=== PATIENT | female | born 1970 | race Caucasian/White ===

== ENCOUNTER → 2017-04-19 | Outpatient (CLI) | payer OTHER ==
[~2017-04-19] MED LIST: BUTA-324 PO; CETI-176 PO; CETI1TAB80 PO; CLAR-1 PO; HYDR2TAB4 PO; IBU200 PO; METR-160 PO; MULT-19 PO; ONDA4TAB PO; PANT40TA65 PO; PER PO; PROM-110 PO
--- NOTE | 2017-04-19 14:00 | RADIOLOGY IMAGING REPORT ---
FACILITY: [facility] PATIENT NAME: GORDY BOND : [id number] MR: [id number] V: [id number] EXAM DATE: [id number] ORDERING PHYSICIAN: LANE WADDELL TECHNOLOGIST: Linnette Lyon PROCEDURE:BILATERAL DIGITAL SCREENING MAMMOGRAM WITH CAD ASSISTED INTERPRETATION & 3D TOMOSYNTHESIS COMPARISON:Mammograms 03/07/2016 & 02/12/2015 INDICATIONS:SCREENING TECHNIQUE: This examination was reviewed with the aid of CAD Breast tissue demonstrates scattered fibroglandular tissue densities. FINDINGS: There is no suspicious mass, calcification or architectural distortion. DIAGNOSTIC CATEGORY 1--NEGATIVE. RECOMMENDATIONS: ROUTINE YEARLY SCREENING MAMMOGRAM AND CLINICAL EVALUATION. IMPRESSION: BIRADS 1: Negative. No mammographic evidence for malignancy. Dictated by: Tigre King M.D. on 04/19/2017 at 12:24 Transcribed by: CHACHO on 04/19/2017 at 13:32 Approved by: Tigre King M.D. on 04/19/2017 at 13:59 [facility]
== END ==
LOC: MAMO 01:28
PROVIDERS: ATTEND Obstetrics & Gynecology
DX: Z12.31 Encounter for screening mammogram for malignant neoplasm of breast (principal)
CPT/HCPCS: 77063; 77067

== ENCOUNTER → 2018-05-20 | Outpatient (CLI) | payer OTHER ==
[~2018-05-20] MED LIST changes: -METR-160 PO; +METR500T15 PO
--- NOTE | 2018-05-20 15:39 | RADIOLOGY IMAGING REPORT ---
FACILITY: [facility] PATIENT NAME: Dasia Jiang : 1970 MR: [id number] V: [id number] EXAM DATE: ORDERING PHYSICIAN: HERMELINDA SAUCEDO TECHNOLOGIST: Location: [facility] [place] Patient: Dasia Jiang : 1970 Visit/Account:[id number] Date of Sevice: 05/20/2018 DEXA Scan Clinical history: Post menopausal. Comparison: None available. LUMBAR SPINE: The bone mineral density (BMD) measured from L1-L4 correlates with a Z-score 1.2 and a T-score of 1.1 which is Normal as defined by the World Health Organization. The corresponding risk of fracture in the lumbar spine is Not increased compared with a young adult reference population. HIP: Bone mineral density (BMD) measured in the Left total hip region correlates with a Z-score 0.8 and a T-score of 0.6 which is Normal as defined by the World Health Organization. The corresponding risk o f fracture in the hip is Not increased compared with a young adult reference population. T score le ft femoral neck 0.2 Bone mineral density (BMD) measured in the Femoral Neck region measures 1.063 g/cm2. Impression: 1. Lumbar spine: Normal. 2. Left Hip: Normal. 3. Femoral Neck: Bone Mineral Density is 1.063 g/cm2 The next DEXA scan of this patient should include the following sites: L1-L4 and the left hip. FRAX? WHO Fracture Risk Assessment Tool link: <http://www.shef.ac.uk/FRAX/tool.jsp?locationValue=9> PLEASE NOTE: 1) The World Health Organization defines low BMD as follows: T-score Normal > -1 Osteopenia < -1 and > -2.5 Osteoporosis < -2.5 without fractures Established osteoporosis < -2.5 with fractures 2) In general, you may wish to consider: Diagnosis Treatment Follow-up DEXA Normal BMD Prevention 2-3 years Osteopenia Prevention/therapy 1-2 years Osteoporosis Therapy Yearly 3) Fracture risk estimated from the T-score is more accurate for vertebral fractures (often spontane ous) than for hip fractures. Report Dictated By: Laura Ramos MD at 05/20/2018 3:34 PM Report E-Signed By: Laura Ramos MD at 05/20/2018 3:35 PM WSN:CADEN
--- NOTE | 2018-05-21 10:46 | RADIOLOGY IMAGING REPORT ---
FACILITY: [facility] PATIENT NAME: GORDY BOND : [id number] MR: [id number] V: [id number] EXAM DATE: [id number] ORDERING PHYSICIAN: HERMELINDA SAUCEDO TECHNOLOGIST: Roxanna Ray PROCEDURE:BILATERAL DIGITAL SCREENING MAMMOGRAM WITH CAD ASSISTED INTERPRETATION & 3D TOMOSYNTHESIS COMPARISON:Prior mammograms 04/19/17, 03/07/16, 02/12/15, 02/03/14, 07/05/12. INDICATIONS:SCREENING FINDINGS: The breasts are almost entirely fatty. The parenchymal pattern has remained stable allowing for difference in mammographic technique & patient positioning. DIAGNOSTIC CATEGORY 1--NEGATIVE. RECOMMENDATIONS: ROUTINE MAMMOGRAM AND CLINICAL EVALUATION. IMPRESSION: BIRADS 1: Negative. No significant abnormality is seen. Dictated by: Laura Ramos M.D. on 05/20/2018 at 18:11 Transcribed by: FAIZAN on 05/21/2018 at 7:57 Approved by: Laura Ramos M.D. on 05/21/2018 at 10:45 [facility]
== END ==
LOC: MAMO 00:20
PROVIDERS: ATTEND Nurse Practitioner Family
DX: Z12.31 Encounter for screening mammogram for malignant neoplasm of breast (principal); N95.1 Menopausal and female climacteric states; Z80.3 Family history of malignant neoplasm of breast
CPT/HCPCS: 77063; 77067; 77080